=== PATIENT | male | born 1955 | race Caucasian/White ===

== ENCOUNTER 2019-02-16 06:33 | Inpatient (IN) ==
--- NOTE | 2019-02-16 07:22 | History & Physical Report ---
Date of Encounter: 02/16/19 Time of Encounter: 07:21 24 Hour HP Update - Instructions Instructions: If the History and Physical is less than 30 days old and was completed prior to A.M. admission and or procedure and has NOT been updated on calendar day of procedure please complete this update prior to performing procedure. - Update Patient reports changes in Medical Condition: No Changes in examination, assessment, or condition: No Changes in Medication: No Preop tests/diagnostics Reviewed: Yes Surgery Remains Indicated: Yes Consent for Planned Operative Procedure(s) Verified: Yes - Pre-Operative Checklist Preoperative Checklist Indicated: Yes Prophylactic Antibiotic Ordered: Yes Home Medications Include Beta Charmaine: No Beta Charmaine Taken Today (Day of Surgery): No Beta Charmaine Taken Yesterday (Day Prior to Surgery): No Is VTE Prophylaxis Indicated?: Yes
--- NOTE | 2019-02-16 07:41 | Anesthesia Evaluation PreOp ---
Date of Encounter: 02/16/19 Time of Encounter: 07:38 - Past History Planned Operation: Robotic Right Partial Nephrectomy Cardiac History: Hyperlipidemia Pulmonary History: Former smoker SINGE WINDER History: Denies Any Significant HX Other Medical History: Renal (r- rENAL mASS), Thyroid (Hypo), GERD Anesthesia History: No Prior Anesthetic Complications, Past Anesthesia (Tonsils, Circ, R-Knee, L-Leg, BACK) Alcohol Use: none Drug use: none Medications and Allergies Allergy/AdvReac Type Severity Reaction Status Date / Time codeine Allergy Itching Verified 02/08/19 12:29 penicillin V Allergy Numbness Verified 02/08/19 12:29 - Meds/Allergy Pre-op Review Medications Reviewed: Yes Allergies Reviewed: Yes Beta Blockers on Current Med List: No Anesthesia Results - Labs Laboratory Tests 02/08/19 02/08/19 12:40 12:40 WBC 6.5 Hgb 14.5 Hct 43.7 Plt Count 204 Creatinine 0.93 - Imaging EKG: report reviewed (SR with Sinus arrhythmia, Poss RVCD) Anesthesia Exam NPO (# of Hours): > 8 HRS Pain Scale: 0 Pain Scale Used: Numeric (1 - 10) - HEENT Pupil (Motor): Pupils equal, EOMI Mallampati: I Teeth: Edentulous Oral Opening: Greater than 3 - SINGE WINDER LOC: Oriented SINGE WINDER Motor: Normal RUE, Normal LUE, Normal RLE, Normal LLE, Normal Face SINGE WINDER Sensory: Normal: RUE, LUE, RLE, LLE, Face - Cardiac Rhythm: Regular Murmur: None JVD: No Carotid Bruit: No - Pulmonary Breath Sounds: bilateral Clear Respiratory Effort: Symmetrical Anesthesia Assess/Plan ASA Score: 3 Level of consciousness: Cooperative Anesthetic Plan: General Autologous Blood: Yes Monitoring Plan: A-Line Recovery Plan: PACU
[2019-02-16] MEDS ORDERED: *HR* Promethazine 25 MG/ML VIAL IVP PRN (07:58)
[2019-02-16] MEDS ORDERED: *HR* Labetalol 20 MG/4 ML SYRINGE IVP PRN (07:58)
[2019-02-16] MEDS ORDERED: Ondansetron 4 MG/2 ML VIAL IVP ONE (07:58)
[2019-02-16] MEDS ORDERED: *HR* OxyCODONE Immed Rel 5 MG TABLET PO PRN (07:58)
[2019-02-16] MEDS ORDERED: Lidocaine -MPF 4% 5 ML AMPUL ONE (08:11)
[2019-02-16] MEDS ORDERED: *HR* Succinylcholine 200 MG/10 ML VIAL IVP ONE (08:11)
[2019-02-16] MEDS ORDERED: Dexamethasone 4 MG/ML VIAL ONE (08:11)
[2019-02-16] MEDS ORDERED: Ondansetron 4 MG/2 ML VIAL ONE (08:11)
[2019-02-16] MEDS ORDERED: CeFAZolin Syr 2,000MG/20 ML 2,000 MG/20 ML SYRINGE IVPB ONE (08:11)
[2019-02-16] MEDS ORDERED: Lidocaine -MPF 2% 2 ML VIAL ONE (08:12)
[2019-02-16] MEDS ORDERED: *HR* FentaNYL (PF) 100 MCG/2 ML VIAL ONE (08:12)
[2019-02-16] MEDS ORDERED: *HR* Midazolam HCl 2 MG/2 ML VIAL ONE (08:13)
[2019-02-16] MEDS ORDERED: *HR* Propofol 200 MG/20 ML VIAL IVP ONE (08:13)
[2019-02-16] MEDS: Ringers Solution, Lactated 1,000 ML IVC SCH (08:21)
[2019-02-16] MEDS ORDERED: *HR* PHENYLEPHRINE 1,000 MCG/10 ML SYRINGE IVP ONE ×4 (08:41→14:35)
[2019-02-16] MEDS ORDERED: Naloxone 0.4 MG/ML INJ IVP PRN (08:45)
[2019-02-16] MEDS ORDERED: Ondansetron 4 MG/2 ML VIAL IVP PRN (08:45)
[2019-02-16] MEDS ORDERED: Heparin 1,000 UNITS/500 mL 500 ML ONE (09:13)
[2019-02-16] MEDS ORDERED: Acetaminophen IV 1,000 MG/100 ML INFUS..BTL ONE (09:29)
[2019-02-16] MEDS ORDERED: Acetaminophen IV 1,000 MG/100 ML INFUS..BTL IVPB SCH ×2 (09:30→12:00)
[2019-02-16] MEDS ORDERED: *HR* HYDROMORPHONE 2 MG/ML VIAL ONE (10:53)
[2019-02-16] MEDS ORDERED: *HR* Rocuronium Bromide 50 MG/5 ML VIAL ONE (10:56)
[2019-02-16] MEDS ORDERED: Neostigmine Methylsulfate 3 MG/3 ML SYRINGE ONE (10:56)
[2019-02-16] MEDS ORDERED: *HR* Phenylephrine 10 MG/ML VIAL ONE (11:02)
--- NOTE | 2019-02-16 13:10 | Operative Note ---
Date of procedure: 02/16/19 Pre-op diagnosis: Right renal mass Post-op diagnosis: same Procedure: Right heminephrectomy with robotic assistance Implants: 19-[place]ese Domenico drain in the right lower quadrant Complications: None Anesthesia: KALLIA Surgeon: Heladio Vazquez Was there an entry level marketing assistant present: Yes Water Manager: Cadence Jung (No qualified instructor adjunct surgical technician was available to assist in the case) Estimated blood loss (cc): 150 Specimen: Right renal tumor Condition: stable Disposition: PACU Procedure in Detail: The patient is very pleasant 63-year-old gentleman is found have a near 5 cm right renal mass with solid and enhancing features consistent with renal cell carcinoma. After discussion of risks benefits alternatives the patient for formal surgical address with curative intent via right partial nephrectomy for presumed right renal cell carcinoma. The patient placed on table supine position. Is identified by name and administered general anesthetic. Patient was repositioned in the left flank with right side up. The patient was prepped and draped in normal sterile fashion. Intraoperative films were reviewed. This confirmed a right upper pole tumor is significant extension into the renal sinus and abutting the renal hilum. Pneumoperitoneum was established with a Veress needle. Camera port was placed blindly. Camera showed no injury from port placement or Veress needle placemen t. Right left-hand ports were placed under direct vision entry level marketing assistant port was placed under direct vision. A liver retractor port was placed. The goals rectum easily. The lower pole kidney was identified and dissection toward the hilum was undertaken. The renal artery and vein were skeletonized. There was an early branch of the renal artery stent and aberrantly and an anteromedial direction. Multiple additional early branches from his early branch were identified. The kidney was defatted. The tumor was identified. Using intraoperative ultrasound extended the tumor was confirmed. Renal artery clamps were placed 2. The renal vein clamp was placed. The renal parenchyma was then incised. There was some oozing from the renal parenchyma suggesting an additional artery early branch which was not controlled. Below the renal artery and vein clamps a bowel grasper was placed as an en bloc renal hilar clamp. This stopped the oozing from the cut surface of kidney. Under direct vision the kidney was taken down below the level tumor to obtain negative gross margins. This required resection into the renal hilum. As we came across multiple branches of the renal artery these were taken between Weck clips. A large renal vein was also taken between Weck clip. Once the specimen was completely transected the surface of the kidney was inspected. The hilum was inspected. It was felt that we did preserve the major branch to the lower pole from the artery as well as a branch of the lower pole renal vein. The base of the resection was oversewn with a 3-0 Vloc suture. The parenchyma was brought together with a running 2-0 V lock suture in a horizontal vertical mattress fashion. Once the parenchyma was closed, the renal vein clamp was released. Some mild oozing was noted from the hilum. Hilum was further dissected a branch from the main renal vein was identified and sealed with a Weck clip. The renal artery clamps were removed and no significant bleeding was appreciated. The remaining half of the kidney pinked up nicely. FloSeal was placed across the cut defect. All ports were removed under direct vision. The lower right quadrant 12 mm entry level marketing assistant port was extended for specimen extraction. At the level of fascia was closed with multiple interrupted 2-0 Vicryl sutures. A 19 mm Domenico drain was placed in the lower right quadrant trocar. The Domenico drain was secured the skin with a 3-0 nylon suture. Sterile dressings were applied and this ended the operative procedure. Warm ischemia time was 50 minutes. Percentage of the kidneys. Was approximately 55-60%. The extent of the tumor into the renal hilum requiring extensive vascular dissection and vascular control complicated the procedure increasing the overall intensity and extending the time procedure by at least 30%.
[2019-02-16] MEDS: *HR* HYDROmorphone (PF) 1 MG/ML SYRINGE IVP PRN ×4 (13:43→13:59)
[2019-02-16] MEDS ORDERED: *HR* Meperidine 25 MG/ML SYRINGE IVP PRN (13:57)
--- NOTE | 2019-02-16 14:38 | Anesthesia Evaluation Post Op ---
Date of Encounter: 02/16/19 Time of Encounter: 14:37 - Lungs Lungs: Clear Ascult./Percussion - Airway Airway: Non-obstructed - Cardiovascular Regular Rate - Mental Status Mental Status: Alert & Oriented, Answers Appropriately - Pain Pain Scale: 0 - Nausea Vomiting Nausea Vomiting: Not Present - Hydration Hydration: Ice chips - Discharge PostOp Status: Transfer Patient to floor
[2019-02-16] MEDS: Acetaminophen IV 1,000 MG/100 ML INFUS..BTL IVPB SCH ×3 (16:47→23:16)
[2019-02-16] MEDS: *HR* Heparin 5,000 UNIT/ML VIAL SQ SCH ×2 (17:47→23:42)
[2019-02-16] MEDS: Artificial Tears SOLN 15 ML BOTTLE BOTH EYES SCH ×2 (18:02→20:15)
[2019-02-16] MEDS: D5% in 0.45% NACL w KCl 20 MEQ/1,000 ML MLS IVC SCH (18:02)
[2019-02-17] MEDS: D5% in 0.45% NACL w KCl 20 MEQ/1,000 ML MLS IVC SCH ×2 (04:10→08:56)
[2019-02-17] MEDS: Acetaminophen IV 1,000 MG/100 ML INFUS..BTL IVPB SCH ×4 (04:36→23:05)
[2019-02-17 06:12] LABS: Hematocrit 31.1 % (37.5-50.1); Hemoglobin 10.6 g/dL (12.9-16.9)
[2019-02-17] MEDS: Ringers Solution, Lactated 1,000 ML IVC SCH (07:50)
[2019-02-17] MEDS: *HR* Heparin 5,000 UNIT/ML VIAL SQ SCH ×3 (08:56→23:09)
[2019-02-17] MEDS: Artificial Tears SOLN 15 ML BOTTLE BOTH EYES SCH ×4 (08:57→21:48)
--- NOTE | 2019-02-17 09:55 | Urology Progress Note ---
Date of Encounter: 02/17/19 Time of Encounter: 09:55 - Assessment and Plan (1) Neoplasm of right kidney Current Visit: Yes Status: Acute Assessment and plan: Hemodynamically stable postop day #1. Patient reports some abdominal cramping, nausea with some mild vomiting early this a.m. No flatus. Incisions clean dry and intact. Abdomen is nonacute. Hemoglobin preop 14.5 and is 10.6 this morning. No significant output from LY drain. Plan: Ambulation. Continue IV fluids and medications until patient tolerating by mouth. Reassess labs in a.m. Anticipate discharge to home tomorrow 02/18/2019. Progress Note Subjective: still having pain Objective Initial Vital Signs Temp Pulse Resp BP Pulse Ox 98.4 F 67 18 127/78 98 02/16/19 07:53 02/16/19 07:53 02/16/19 07:53 02/16/19 07:53 02/16/19 07:53 - General physical appearance Present: moderate pain - Respiratory Present: normal respiratory effort - Abdomen Present: non tender - Integumentary Present: no rash, no growths - Musculoskeletal Present: normal posture - Psychiatric Present: oriented to time, oriented to person, oriented to place - Labs 02/17/19 05:50 Consult Discharge Plan - Plan Referrals: Heladio Jolly MD [Primary Care Provider] -
[2019-02-17] MEDS ORDERED: Ondansetron 4 MG/2 ML VIAL IVP PRN (10:37)
[2019-02-17] MEDS: 0.9 % Sodium Chloride 1,000 ML IVC SCH (14:17)
[2019-02-18] MEDS: 0.9 % Sodium Chloride 1,000 ML IVC SCH (03:58)
[2019-02-18 05:40] LABS: Hemoglobin 10.1 g/dL (12.9-16.9)
[2019-02-18] MEDS: Acetaminophen IV 1,000 MG/100 ML INFUS..BTL IVPB SCH (07:45)
[2019-02-18] MEDS ORDERED: Acetaminophen 325 MG TABLET PO PRN (08:05)
--- NOTE | 2019-02-18 08:13 | Discharge Summary ---
Orders not resulted at time of discharge: Pending orders 02/16/19 07:53 EKG [ECG 12 lead ECG] [ECG] Stat 02/16/19 12:57 Surgical Pathology [PTH] Routine 02/17/19 04:00 Creatinine AM 0400 02/17/19 10:05 Creatinine,Body Fluid Routine 02/18/19 08:08 CBC [Complete Blood Count] [HEME] Routine Date of Encounter: 02/18/19 Time of Encounter: 07:45 - Discharge Diagnosis (1) Neoplasm of right kidney Priority: Primary Status: Acute - Hospital Course Hospital course: Mr. Hardy is a 63 year old male who presents with a history of right renal neoplasm. On 02/16/2019, patient was taken to the operating room where he underwent right heminephrectomy with robotic assistance. There were no surgical complications, and the patient tolerated the procedure well. Postoperative course was relatively unremarkable, and he was dismissed in satisfactory condition. Patient did experience some nausea and vomiting on postoperative day #1, but this quickly resolved. On postoperative day #2, the patient's Samuels catheter and drain were removed without difficulty. Patient was encouraged to continue incentive spirometry every hour. Postoperative expectations, restrictions, activity and follow-up were discussed with patient, and patient verbalized understanding. Time spent discussing smoking cessation with patient: 3 to 10 minutes - Time Spent with Patient Total time spent providing and/or coordinating discharge services: Less than 30 minutes Procedures and tests throughout hospitalization: Right heminephrectomy with robotic assistance Labs on day of discharge: Labs from last 24 hours 02/18/19 05:19 Hgb 10.1 L Hct 30.0 L - Discharge Medications Prescriptions: New Ciprofloxacin HCl [Cipro] 250 mg PO BID #20 tablet Docusate [Colace] 100 mg PO BID #30 capsule HYDROcodone/Acet 5/325 mg [[place] 5-325 mg] 1 tab PO Q6H PRN 3 Days #12 tab PRN Reason: Pain Continued Pravastatin Sodium [Pravachol] 20 mg PO QPM Omeprazole [PriLOSEC] 40 mg PO QPM Meloxicam 15 mg PO QPM Levothyroxine [Synthroid] 50 mcg PO QPM Cetirizine HCl [Allergy Relief] 10 mg PO QPM Tamsulosin HCl [Flomax] 0.4 mg PO QPM Home Medications: Cetirizine HCl [Allergy Relief] 10 mg PO QPM 02/16/19 [History] Levothyroxine [Synthroid] 50 mcg PO QPM 02/16/19 [History] Meloxicam 15 mg PO QPM 02/16/19 [History] Omeprazole [PriLOSEC] 40 mg PO QPM 02/16/19 [History] Pravastatin Sodium [Pravachol] 20 mg PO QPM 02/16/19 [History] Tamsulosin HCl [Flomax] 0.4 mg PO QPM 02/16/19 [History] Ciprofloxacin HCl [Cipro] 250 mg PO BID #20 tablet 02/18/19 [Rx] Docusate [Colace] 100 mg PO BID #30 capsule 02/18/19 [Rx] HYDROcodone/Acet 5/325 mg [[place] 5-325 mg] 1 tab PO Q6H PRN 3 Days #12 tab 02/18/19 [Rx] Allergies/Adverse Reactions: Allergy/AdvReac Type Severity Reaction Status Date / Time codeine Allergy Itching Verified 02/16/19 08:30 penicillin V Allergy Numbness Verified 02/16/19 08:30 Date of admission: 02/16/19 15:10 Primary care physician: Heladio Jolly MD Discharging clinician: Cadence Jung Anticipated date of discharge: 02/18/19 Exam Initial Vital Signs Temp Pulse Resp BP Pulse Ox 98.4 F 67 18 127/78 98 02/16/19 07:53 02/16/19 07:53 02/16/19 07:53 02/16/19 07:53 02/16/19 07:53 - General physical appearance Present: well developed, no distress, no pain - Eyes Present: PERRL, normal ocular movement - ENT Present: normal nares, no hearing loss, no congestion - Neck Present: no masses, trachea midline, no lymphadenopathy - Respiratory Present: normal respiratory effort - Cardiovascular Cardiovascular exam IM: RRR - Abdomen Abdomen: Present: soft, non tender, wound (Primary incisions clean, dry, intact). Absent: distended - Genitourinary other (Samuels catheter indwelling and draining transparent, clear yellow urine) - Integumentary Present: no rash, no abnormal pigmentation - Neurologic Present: normal coordination - Musculoskeletal Present: other (Normal posture) - Patient Status Disposition: Home, Self-Care Condition: Good Functional capacity at discharge: independent ambulation Overall status at discharge: patient is progressing back to baseline - Discharge Instructions Follow Up With: Heladio Vazquez [Partnered Physician] - 03/03/19 1:45 pm Additional Instructions: Call if fever greater than 101 degrees. Call if incision sites are red, warm, or begin to drain excessively. Okay to shower. No tub baths, swimming, or hot tubs. No lifting greater than 20 pounds or heavy activity. Okay to drive as long as you are no longer taking narcotic pain medicine. - Diet and Activity Activity: increase activity as tolerated Diet: advance to your usual diet
[2019-02-18 08:44] LABS: Basophils % 0.2 %; Eosinophils % 0.1 %; Hematocrit 30.2 % (37.5-50.1); Hemoglobin 10.2 g/dL (12.9-16.9); Immature Granulocytes % 0.6 % (0-4); Lymphocytes # 1.5 K/mcL (0.6-4.6); Lymphocytes % 11.6 %; Mean Corpuscular HGB Conc 33.8 g/dL (31.6-35.5); Mean Corpuscular Hemoglobin 31.5 pg (28.0-33.3); Mean Corpuscular Volume 93.2 fL (83.0-100.0); Mean Platelet Volume 9.8 fL (9.4-12.4); Monocytes # 1.8 K/mcL (0.0-1.3); Monocytes % 13.6 %; Neutrophils # 9.5 K/mcL (1.6-8.9); Platelet Count 159 K/mcL (140-400); Red Blood Count 3.24 M/mcL (4.19-5.50); Red Cell Distribution Width 11.9 % (11.5-14.5); Segmented Neutrophils % 73.9 %; White Blood Count 12.9 K/mcL (4.3-11.1)
[2019-02-18] MEDS: Artificial Tears SOLN 15 ML BOTTLE BOTH EYES SCH ×2 (08:58→12:44)
[2019-02-18] MEDS: *HR* Heparin 5,000 UNIT/ML VIAL SQ SCH (08:58)
[2019-02-18 10:41] VITALS: BP 128/72
--- NOTE | 2019-02-18 15:58 | Electrocardiograph Report ---
[place] [id number] Test Date: 2019-02-16 Pat Name: Jon Hardy Department: 106 Room: 3A Gender: M Intel Analyst: GERA : 1955 Requested By: Heladio Vazquez Order Number: [id number] Reading MD: Neyda Liz Measurements Intervals [place] Rate: 62 P: 50 FL: 157 QRS: 19 QRSD: 97 T: 27 QT: 375 QTc: 381 Interpretive Statements SINUS RHYTHM WITH SINUS ARRHYTHMIA POSSIBLE RIGHT VENTRICULAR CONDUCTION DELAY Electronically Signed On 02-18-2019 15:56:29 EDT by Neyda Liz
== END 2019-02-18 16:16 | disposition home or self-care (01) | DRG 442 ==
LOC: SAMDAY 06:33 → 3ANU 15:10
PROVIDERS: ADMIT Urology; ATTEND Urology